=== PATIENT | male | born 1990 | race Caucasian/White ===

== ENCOUNTER 2016-10-30 20:51 | Emergency (ER) | payer SELFPAY ==
[~2016-10-30] VITALS: Ht 182.9 cm; Wt 97.5 kg
[2016-10-30] MEDS ORDERED: Haloperidol 5mg/ml Inj IM ONE (21:00)
[2016-10-30] MEDS ORDERED: LORazepam Inj 2mg/ml 1ml IM ONE ×2 (21:00→21:15)
[2016-10-30] MEDS ORDERED: DiphenhydrAMINE 50mg/ml Inj IM ONE ×2 (21:00→21:15)
[2016-10-30] MEDS ORDERED: Haloperidol 5mg/ml Inj ONE (21:01)
[2016-10-30 22:29] VITALS: BP_SYST 105; BP_SYST 107; BP_DIAS 51
[2016-10-30 22:31] LABS: MEAN CORPUSCULAR HEMOGLOBIN 30.4 PG (27.0-31.0); MEAN CORPUSCULAR HGB CONC 33.8 G/DL (32.0-36.0); MEAN CORPUSCULAR VOLUME 90 FL (80-99); MEAN PLATELET VOLUME 6.3 FL (6.5-10.1); PLATELET COUNT 375 K/UL (150-450); RED BLOOD COUNT 5.24 M/UL (4.70-6.10); RED CELL DISTRIBUTION WIDTH 12.3 % (11.6-14.8)
[2016-10-30 22:35] LABS: WHITE BLOOD COUNT 24.9 K/UL (4.8-10.8)
[2016-10-30 22:44] VITALS: BP 122/66
[2016-10-30 22:59] VITALS: BP 114/67
[2016-10-30 23:03] LABS: ALCOHOL < 10 mg/dL
[2016-10-30 23:04] LABS: ACETAMINOPHEN < 10 ug/mL (10-30); ALANINE AMINOTRANSFERASE 26 U/L (3-41); ALBUMIN/GLOBULIN RATIO 1.8 (1.0-2.7); ALCOHOL < 10 mg/dL; ANION GAP 17 (5-15); ASPARTATE AMINO TRANSFERASE 34 U/L (5-40); CALCIUM 10.3 mg/dL (8.6-10.2); CARBON DIOXIDE 21 mEQ/L (20-30); CHLORIDE 100 mEQ/L (98-107); CREATININE 1.7 mg/dL (0.7-1.2); GLOMERULAR FILTRATION RATE 48.6 mL/min (>60); HEMOLYSIS 7; POTASSIUM 4.2 mEQ/L (3.4-4.9); SODIUM 138 mEQ/L (135-145); TOTAL PROTEIN 7.8 g/dL (6.6-8.7)
[2016-10-30 23:14] VITALS: BP 144/82
[2016-10-30 23:16] LABS: BAND NEUTROPHILS % (MANUAL) 4 % (0-8); BASOPHILS % (MANUAL) 0 % (0-2); EOSINOPHILS % (MANUAL) 0 % (0-3); LYMPHOCYTES % (MANUAL) 7 % (20-45); NEUTROPHILS % (MANUAL) 82 % (45-75); PLATELET ESTIMATE ADEQUATE; PLATELET MORPHOLOGY NORMAL; TOTAL CELLS COUNTED 100
[2016-10-30 23:24] LABS: APPEARANCE,URINE CLEAR; KETONES,URINE NEGATIVE (NEGATIVE); LEUKOCYTE ESTERASE ,URINE 1+ (NEGATIVE); NITRITE,URINE NEGATIVE (NEGATIVE); PH,URINE 6 (4.5-8.0); PROTEIN,URINE 2+ (NEGATIVE); UROBILINOGEN,URINE NORMAL MG/DL (0.0-1.0)
[2016-10-30 23:29] VITALS: BP 137/90
[2016-10-30 23:43] LABS: RBC,URINE 0-2 /HPF (0 - 0); WBC,URINE 0-2 /HPF (0 - 0)
[2016-10-30 23:44] LABS: HYALINE CASTS, URINE 0-2 /LPF
--- NOTE | 2016-10-31 00:17 | Emergency Room Report ---
History of Present Illness General Chief Complaint: Substance Abuse Source: Patient Present Illness HPI Is a 26-year-old male brought in by EMS with police escort for psychiatric issue. Patient was combative yelling and screaming. Admit to using drugs. Denies any fever chills denies any nausea vomiting. Denies any alcohol use. He said he is being persecuted follow. Because of his combativeness he was placed in her strengths and had to be given medication to calm him down. Allergies: Coded Allergies: UNABLE TO ASSESS (Unverified , 10/30/16) Patient History Past Medical History: see triage record, old chart reviewed Past Surgical History: none Family History: none Social History: tobacco use, drug use Immunizations: other Reviewed Nursing Documentation: PMH: Agreed, PSxH: Agreed Nursing Documentation-PMH Past Medical History Deferred: Pt Cognitively Impaired Past Medical History: Deferred History Of Psychiatric Problem: Yes - Bipolar, schizophrenia, depression Review of Systems ENT: Denies: sore throat Cardiovascular: Denies: chest pain, palpitations Gastrointestinal/Abdominal: Denies: diarrhea, nausea, vomiting Musculoskeletal: Denies: back problems Skin: Denies: rash Neurological: Denies: GU, seizures All Other Systems: negative except mentioned in HPI Physical Exam Vital Signs Date Time Temp Pulse Resp B/P Pulse Ox O2 Delivery O2 Flow Rate FiO2 10/30/16 22:29 98.1 168 25 105/51 99 Room Air vitals with tachycardia Sp02 EP Interpretation: reviewed, normal General Appearance: alert/responsive, no apparent distress, non-toxic, other - Agitated Head: normocephalic, atraumatic Eyes: PERRL, EOMI ENT: oropharynx normal Neck: supple/symm/no masses Respiratory: effort normal, no rhonchi, no wheezing Cardiovascular: no murmur, gallop, rub, other - Tachycardia Gastrointestinal: non-tender, no mass, non-distended, no rebound/guarding, normal bowel sounds Musculoskeletal: gait & station normal Neurologic: oriented x3, sensory intact, motor strength/tone normal Psychiatric: other - Agitated Suicide Risk Assessment: Suicidal Ideation: No Had intent to initiate attempt: No Pt's plan for suicide attempt: No Has means to complete attempt: No Skin: no rash, normal palpation Medical Decision Making Diagnostic Impression: Primary Impression: Substance abuse Additional Impressions: Psychosis Qualified Codes: F23 - Brief psychotic disorder Leukocytosis Qualified Codes: D72.829 - Elevated white blood cell count, unspecified SHARON (acute kidney injury) ER Course Patient presents with psychotic episode secondary to drug abuse. After sedation an IV fluid, he's back to baseline. No longer psychotic. Restraints were removed. He's not suicidal or homicidal. Right now, no pitcher for 5150. His leukocytosis and acute kidney injury probably secondary to dehydration and drugs. No evidence of infection. This patient is a chronic risk of self injury due to poor impulse control, limited coping skills, and judgment intermittently impaired by intoxication. I believe that the available clinical evidence to suggest that these characteristics derived primarily from personality disorder and are likely very stable over time. Hospitalization would likely attenuate risk of self-harm only during intermediate period, without lasting risk reduction. Serious self-harm , while possible, would likely be inadvertent, and because of impulsivity, and foreseeable. For these reasons, I do not believe hospitalization would provide meaningful reduction in risk of self-harm. Lab Results Impression labs with leukocytosis Rhythm Strip Diag. Results Rhythm Strip Time: 04:18 EP Interpretation: yes Rate: 106 Rhythm: NSR, no PVC's, no ectopy Last Vital Signs Date Time Temp Pulse Resp B/P Pulse Ox O2 Delivery O2 Flow Rate FiO2 10/30/16 22:59 98.1 132 18 114/67 96 Room Air Status: improved Disposition: HOME, SELF-CARE Condition: Stable Referrals: NOT CHOSEN MALACHI/,REFERRING (PCP) Patient Instructions: Substance Use Disorder Additional Instructions: Stop using drugs. Follow up with your doctor in 3-5 days. Return if worse. DURGA ZARATE M.D. Oct 31, 2016 00:17
[2016-10-31 00:30] VITALS: BP 144/82
[2016-10-31 14:02] LABS: OTHERS PATHOLOGIST COMMENT
== END 2016-10-31 00:30 | disposition home or self-care (01) ==
LOC: EDBD 20:51 → EMR 21:25
DX: F15.10 Other stimulant abuse, uncomplicated (principal); F29 Unspecified psychosis not due to a substance or known physiological condition; D72.829 Elevated white blood cell count, unspecified; F31.9 Bipolar disorder, unspecified; F20.9 Schizophrenia, unspecified
CPT/HCPCS: 36415; 80053; 80300; 81003; 85007; 85025; 96360; 96372; 96374; 99284; G0480; J1200; J1630; 80329